=== PATIENT | female | born 1955 | race Caucasian/White ===

== ENCOUNTER → 2017-11-20 | Day surgery (SDC) | payer BC, MEDICARE ==
[~2017-11-20] MED LIST: ADDERALL 20 MG20 MG PO; ARMOUR THYROID60 MG PO; BALANCED SALT SOLN (OPTH) 15 ML BTL IO ONE; CLONAZEPAM1 MG PO; FENTANYL CITRATE/PF 100MCG/2 ML INJ ONE; GELATIN SPONGE 12-7MM ONE; GLYCOPYRROLATE1 MG PO; LIDOCAINE 2% /EPINEPHRINE 20 ML SDV INJ ONE; LIDOCAINE HCL 2% LOCAL INJ 5 ML SDV VIAL INJ ONE; LUNESTA3 MG PO; MIDAZOLAM HCL 2 MG/2 ML VIAL ONE; MONTELUKAST SOD10 MG PO; NEOMYCIN/POLYMYXIN/DEX (OPTH) 3.5 GM TUBE ONE; OMEPRAZOLE40 MG PO; PRISTIQ ER50 MG PO; PROPOFOL IV EMULSION 10 MG/ML 20 ML VIAL ONE; SOMA350 MG PO; TYLENOL325 MG PO; WELLBUTRIN XL150 MG PO
--- OUTSIDE RECORDS SUMMARY | 2017-11-20 15:42 | XMS REPORT | Clinical Summary ---
Author Author [facility] Address Unknown Phone Unavailable Care Team Providers Care Automatic Chief Name Role Phone Marcelino Ramirez MD PCP Allergies Active Allergy Reactions Severity Noted Date Comments Tramadol Other (See Comments) 09/24/2017 vomitting Current Medications Prescription Sig. Disp. Refills Start End Date Status Date carisoprodol (SOMA) 350 TAKE 1 TABLET BY MOUTH 60 tablet 2 06/05/20 08/05/20 MG tablet TWICE DAILY NEEDED 17 17 buPROPion XL (WELLBUTRIN Take 1 tablet (150 mg 30 tablet 0 09/27/20 10/27/19 XL) 150 MG 24 hr total) by mouth every 17 18 tabletIndications: Major morning for 30 days Depressive Disorder Indications: Major Depressive Disorder. desvenlafaxine succinate Take 2 tablets (50 mg 30 tablet 0 09/27/20 10/27/19 25 mg tablet extended total) by mouth every 17 18 release 24 hrIndications: other day for 30 days Major Depressive Disorder Indications: Major Depressive Disorder. hydrOXYzine (ATARAX) 50 Take 1 tablet (50 mg 45 tablet 1 09/27/20 MG tabletIndications: total) by mouth every 6 17 18 Anxiety (six) hours as needed (MILD ANXIETY) for up to 30 days Indications: Anxiety. Active Problems Problem Noted Date Severe episode of recurrent major depressive disorder, without psychotic features Encounters Date Type Specialty Care Team Description 09/24/2017 Hospital Psychiatry Shira Vallejo DO Severe single current - Encounter Ritu Rosas MD episode of major 09/27/2017 Sina Clay MD depressive disorder, without psychotic features (Primary Dx); Laceration of neck, initial encounter 06/03/2017 Refill Neurology Radhika Wong MD after 11/19/2016 Social History Tobacco Use Types Packs/Day Years Used Date Never Smoker Smokeless Tobacco: Never Used Alcohol Use Drinks/Week oz/Week Comments No Sex Assigned at Date Recorded Not on file Last Filed Vital Signs Vital Sign Reading Time Taken Blood Pressure 109/57 09/27/2017 6:13 AM [facility] Pulse 60 09/27/2017 6:13 AM [facility] Temperature 36.3 C (97.3 F) 09/27/2017 6:13 AM [facility] Respiratory Rate 18 09/27/2017 6:13 AM [employer] [facility] Oxygen Saturation 99% 09/27/2017 6:13 AM [facility] Inhaled Oxygen - - Concentration Weight 76.4 kg (168 lb 7 oz) 09/26/2017 8:01 AM [employer] [facility] Height 167.6 cm (5' 6") 09/25/2017 4:02 AM [employer] [facility] Body Mass Index 27.19 09/26/2017 8:01 AM [employer] [facility] Plan of Treatment Health Maintenance Due Date Last Done Comments PAP SMEAR 1977 COLONOSCOPY 2006 MAMMOGRAM 09/17/2015 09/17/2013, 09/25/2012, 07/06/2011, Additional history exists ZOSTER VACCINE 2016 INFLUENZA VACCINE 05/01/2017 Procedures Procedure Name Priority Date/Time Associated Diagnosis Comments NM RESUP NPTERF WND BODY Routine 10/02/2017 Results for this 2.6-7.5 CM 5:46 PM [employer] [facility] procedure are in the results section. after 11/19/2016 Results * LACERATION REPAIR (10/02/2017 5:46 PM) Narrative JENNIFER Hernández 09/24/2017 11:44 PM Laceration Repair Performed by: DUY VILLARREAL Authorized by: SHIRA VALLEJO Consent: Consent obtained:Verbal Consent given by:Patient Risks discussed:Infection, pain, poor cosmetic result, poor wound healing, retained foreign body, tendon damage and vascular damage Alternatives discussed:Delayed treatment Anesthesia (see MAR for exact dosages): Anesthesia method:Local infiltration Local anesthetic:Lidocaine 1% w/o epi Laceration details: Location:Neck Neck location:R anterior Length (cm):3 Repair type: Repair type:Simple Pre-procedure details: Preparation:Patient was prepped and draped in usual sterile fashion and imaging obtained to evaluate for foreign bodies Exploration: Wound exploration: wound explored through full range of motion and entire depth of wound probed and visualized Wound extent: no areolar tissue violation noted, no fascia violation noted, no foreign bodies/material noted, no muscle damage noted, no nerve damage noted, no tendon damage noted, no underlying fracture noted, no vascular damage noted and no amputation Contaminated: no Treatment: Area cleansed with:Betadine and saline Amount of cleaning:Standard Irrigation solution:Sterile saline Visualized foreign bodies/material removed: yes Skin repair: Repair method:Sutures Suture size:5-0 Suture material:Prolene Suture technique:Simple interrupted Number of sutures:7 Approximation: Approximation:Close Vermilion border: well-aligned Post-procedure details: Dressing:Antibiotic ointment Patient tolerance of procedure:Tolerated well, no immediate complications * ECG 12 lead (09/25/2017 8:24 AM) Component Value Ref Range Ventricular rate 64 Atrial rate 64 NM interval 166 QRSD interval 100 QT interval 450 QTC interval 464 P axis 1 45 QRS axis 1 10 T wave axis 45 EKG impression Normal sinus rhythm-Normal ECG-In automated comparison with ECG of 26-MAR-2014 07:42,-ST no longer depressed in Inferior leads- Specimen Performing Laboratory [facility] [address] [place] [id number] * Urinalysis screen and microscopy, with reflex to culture (09/24/2017 9:21 PM) Component Value Ref Range Specimen site Clean catch Color, UA Straw Appearance, UA Clear Specific gravity, UA 1.009 1.001 - 1.035 pH, UA 6.0 5.0 - 8.5 Protein, UA Negative Negative Glucose, UA Negative Negative Ketones, UA Negative Negative Bilirubin, UA Negative Negative Blood, UA Negative Negative Nitrite, UA Negative Negative Urobilinogen, UA <2.0 <2.0 Leukocyte esterase, UA Small (A) Negative Epithelial cells, UA 1 /HPF WBC, UA 11 (H) 0 - 4 /HPF RBC, UA 1 0 - 2 /HPF Bacteria, UA Few None seen Yeast, UA None seen Yeast with pseudohyphae, None seen UA Hyaline casts, UA 1 /LPF Specimen Performing Laboratory Urine [facility] DEPART[facility] OF PATHOLOGY AND GENOMIC MEDICINE [address] [place] [id number] * Urine drugs of abuse screen (09/24/2017 9:21 PM) Component Value Ref Range Amphetamine screen, urine Negative Barbiturate screen, urine Negative Benzodiazepine screen, Positive (A) urine Cannabinoid screen, urine Negative Cocaine screen, urine Negative Methadone metabolite Negative (EDDP), urine Opiates screen, urine Negative Oxycodone screen, urine Negative Phencyclidine screen, Negative urine Tricyclic screen, urine Negative Comment: Drug screen minimum concentration of detectability Amphetamines 1000 ng/mL Barbiturates 200 ng/mL Benzodiazepines 300 ng/mL Cocaine 300 ng/mL Methadone 3 00 ng/mL Opiates 300 ng/mL Oxycodone 3 00 ng/mL Phencyclidine 25 ng/mL Cannabinoids 50 ng/mL Tricyclics 1000 ng/mL Negative test results indicates presumptive evidence of lack of clinically significant drug concentration in this urine specimen. Positive test results are presumptive evidence of clinically significant drug concentration in this urine specimen. Testing performed for medical purposes only. Specimen Performing Laboratory Urine [facility]PART[facility] OF PATHOLOGY AND GENOMIC MEDICINE [address] [place] [address] * Gram stain (09/24/2017 9:21 PM) Component Value Ref Range Gram stain result Few WBC's Rare Gram positive cocci in pairs Comment: Specimen Information Specimen Source: Urine Specimen Site: Clean catch Specimen Performing Laboratory Urine [facility] OF PATHOLOGY [facility] GENOMIC MEDICINE [address] [place] [address] * Urine culture (09/24/2017 9:21 PM) Component Value Ref Range Urine culture isolate Streptococcus group B 10-3 cfu/ml (A) Comment: Specimen Information Specimen Source: Urine Specimen Site: Clean catch Specimen Performing Laboratory Urine [facility] OF [facility]OMIC [facility]INE [address] [place] [address] * Estimated GFR (09/24/2017 8:00 PM) Component Value Ref Range GFR Non Af Amer 64 mL/min/1.73 m2 GFR Af Amer 77 mL/min/1.73 m2 Comment: Chronic kidney disease: <60 mL/min/1.73m2 Kidney failure: <15 mL/min/1.73m2 The estimated GFR is calculated from the IDMS-traceable Modification of Diet in Renal Disease Equation. The accuracy of the calculation is poor when the creatinine is normal. Calculated values >90 mL/min/1.73m2 are not reported. This equation has not been validated in children (<18 years), women, the elderly (>70 years), or ethnic groups other than Caucasians and Americans. Specimen Performing Laboratory Plasma specimen [facility] OF PATHOLOGY [facility] GENOMIC MEDICINE [address] [place], [place] [id number] * CBC with platelet and differential (09/24/2017 8:00 PM) Component Value Ref Range WBC 5.14 4.50 - 11.00 k/uL RBC 4.62 4.20 - 5.50 m/uL HGB 14.4 12.0 - 16.0 g/dL HCT 43.8 37.0 - 47.0 % MCV 94.8 82.0 - 100.0 fL MCH 31.2 27.0 - 34.0 pg MCHC 32.9 31.0 - 37.0 g/dL RDW - SD 41.4 37.0 - 55.0 fL MPV 10.7 8.8 - 13.2 fL Platelet count 148 (L) 150 - 400 k/uL Nucleated RBC 0.00 /100 WBC Neutrophils 55.4 39.0 - 69.0 % Lymphocytes 37.0 25.0 - 45.0 % Monocytes 6.4 0.0 - 10.0 % Eosinophils 0.6 0.0 - 5.0 % Basophils 0.4 0.0 - 1.0 % Immature granulocytes 0.2Comment: "Immature granulocytes" 0.0 - 1.0 % (promyelocytes, myelocytes, metamyelocytes) Specimen Performing Laboratory Blood [facility] OF PATHOLOGY AND GENOMIC MEDICINE [address] [place] [id number] * Thyroid stimulating hormone (09/24/2017 8:00 PM) Component Value Ref Range TSH 2.85 0.27 - 4.20 uIU/mL Specimen Performing Laboratory Plasma specimen [facility] OF PATHOLOGY AND GENOMIC MEDICINE [address] [place] [id number] * T4, free (09/24/2017 8:00 PM) Component Value Ref Range T4, free 0.9 0.9 - 1.7 ng/dL Specimen Performing Laboratory Plasma specimen [facility] OF PATHOLOGY AND GENOMIC MEDICINE [address] [place] [phone] * Hemoglobin A1c (09/24/2017 8:00 PM) Component Value Ref Range Hemoglobin A1C 5.0 4.0 - 5.6 % Comment: HbA1c cutoffs for diagnosing diabetes: 4.0% - 5.6%=normal 5.7% - 6.4%=increased risk for diabetes (prediabetes) >=6.5%=diabetes Goals for glycemic control (ADA 2016) < 7.0% Target for non adults with diabetes. More or less stringent targets may be appropriate for individual patients. <7.5% Target for Children and adolescents with type 1 diabetes. Specimen Performing Laboratory [facility] OF PATHOLOGY AND GENOMIC MEDICINE [address] [place] [id number] * Alcohol level, blood (09/24/2017 8:00 PM) Component Value Ref Range Alcohol None Detected mg/dL Comment: Normal None Detected Legal Intoxication in [place] 80 mg/dL (0.08%) - Whole Blood Toxic Concentration 200 mg/dL (0.2%) Potentially Fatal 350 - 500 mg/dL (0.35 - 0.5%) Alcohol percent None Detected % Specimen Performing Laboratory Plasma specimen [facility] OF PATHOLOGY AND GENOMIC MEDICINE [address] [place] [phone] * Acetaminophen level (09/24/2017 8:00 PM) Component Value Ref Range Acetaminophen level <15.0 10.0 - 30.0 ug/mL Comment: Therapeutic 10-30 ug/mL Possible Toxicity 150-200 ug/mL Probable Toxicity >200 ug/mL Specimen Performing Laboratory Plasma specimen [facility] OF PATHOLOGY AND GENOMIC MEDICINE [address] [place] [id number] * Salicylate level (09/24/2017 8:00 PM) Component Value Ref Range Salicylate <3.0 3.0 - 30.0 mg/dL Specimen Performing Laboratory Plasma specimen [facility] OF PATHOLOGY [facility] GENOMIC MEDICINE [address] [place] [id number] * Lipid panel (09/24/2017 8:00 PM) Component Value Ref Range Cholesterol 231 (H) <200 mg/dL Triglycerides 220 (H) <150 mg/dL HDL cholesterol 36 (L) >40 mg/dL LDL cholesterol 161 (H)Comment: Result obtained by direct LDL <100 mg/dL measurement Lipid panel SeeBelow interpretation Comment: Total Cholesterol (mg/dL) <200 Desirable 200-239 Borderline-high >=240 High Triglycerides (mg/dL) <150 Normal 150-199 Borderline-high 200-499 High >=500 Very high HDL Cholesterol (mg/dL) <40 Low (male) <40 Low (female) LDL Cholesterol (mg/dL) <100 Optimal 100-129 Near or above optimal 130-159 Borderline-high 160-189 High >=190 Very high Risk Catergories that modify LDL goals. Risk Catergories LDL goal (mg/dL) CHD and CHD risk equivalent <100 (10-year risk >20%) Multiple (2+) risk factors <130 (10-year risk=<20%) 0-1 risk factors <160 (<10-year risk) Defining levels of lipids in metabolic syndrome Triglycerides >=150 mg/dL HDL Cholesterol Men <40 mg/dL Women <40 mg/dL Non-HDL cholesterol is a second target for therapy in persons with high triglycerides (>=200 mg/dL) Specimen Performing Laboratory Plasma specimen [facility] OF PATHOLOGY [facility] GENOMIC MEDICINE [address] [place] [address] * Comprehensive metabolic panel (09/24/2017 8:00 PM) Component Value Ref Range Sodium 143 135 - 148 mEq/L Potassium 4.4 3.5 - 5.0 mEq/L Chloride 107 98 - 112 mEq/L CO2 24 24 - 31 mEq/L Anion gap 12 7 - 15 mEq/L Comment: Starting from December , anion gap calculation no longer incorporates potassium. Please note the change. BUN 9 8 - 23 mg/dL Creatinine 0.9 0.5 - 0.9 mg/dL Glucose 78 65 - 99 mg/dL Calcium 9.1 8.8 - 10.2 mg/dL Protein 6.5 6.3 - 8.3 g/dL Comment: 4.6-7.0 g/dL 1 week 4.4-7.6 g/dL 7 months-1year 5.1-7.3 g/dL 1-2 years 5.6-7.5 g/dL >3 years 6.0-8.0 g/dL 18-150 6.3-8.3 g/dL Albumin 3.5 3.5 - 5.0 g/dL A/G ratio 1.2 0.7 - 3.8 Alkaline phosphatase 54 35 - 104 U/L AST 22 10 - 35 U/L ALT 16 5 - 50 U/L Total bilirubin 0.3 0.0 - 1.2 mg/dL Specimen Performing Laboratory Plasma specimen [facility] OF PATHOLOGY AND GENOMIC MEDICINE [address] [place] [address] after 11/19/2016 Insurance Payer Benefit Subscriber ID Type Phone Address Plan / Group BCBS BCBS xxxxxxxxxxxx PPO CHOICE PPO/LESTER JO[employer] PPO MEDICARE MEDICARE xxxxxxxxxx Medicare [place], [place] PART A AND B
== END | disposition home or self-care (01) ==
LOC: OR 15:40
PROVIDERS: ATTEND Ophthalmology
DX: H02.834 Dermatochalasis of left upper eyelid (principal); H02.831 Dermatochalasis of right upper eyelid; E03.9 Hypothyroidism, unspecified; K21.9 Gastro-esophageal reflux disease without esophagitis; N20.0 Calculus of kidney; F41.9 Anxiety disorder, unspecified; F32.9 Major depressive disorder, single episode, unspecified
CPT/HCPCS: 15823; J2001 ×2; J2250

== ENCOUNTER → 2018-07-02 | Outpatient (CLI) | payer BC, MEDICARE ==
[~2018-07-02] MED LIST changes: -BALANCED SALT SOLN (OPTH) 15 ML BTL IO ONE; -FENTANYL CITRATE/PF 100MCG/2 ML INJ ONE; -GELATIN SPONGE 12-7MM ONE; -LIDOCAINE 2% /EPINEPHRINE 20 ML SDV INJ ONE; -LIDOCAINE HCL 2% LOCAL INJ 5 ML SDV VIAL INJ ONE; +LORAZEPAM INJ 2 MG/ML VIAL ONE; -MIDAZOLAM HCL 2 MG/2 ML VIAL ONE; -NEOMYCIN/POLYMYXIN/DEX (OPTH) 3.5 GM TUBE ONE; -PROPOFOL IV EMULSION 10 MG/ML 20 ML VIAL ONE
--- NOTE | 2018-07-03 07:46 | Diagnostic Imaging Report ---
EXAMINATION: MRI of the thoracic spine without contrast HISTORY: Back and shoulder pain COMPARISON: None. TECHNIQUE: Sagittal T1 without contrast, T2, and STIR; axial T2. Coronal T2. Intravenous contrast: none FINDINGS: Curvature: Normal kyphosis. Right upper dextroscoliosis. Vertebrae: No evidence of recent fracture, infection, or neoplasm. Modic type I endplate degenerative changes with subchondral bone marrow edema on the left side at T6-T7 and T7-T8. Discs: Symmetric disc bulges from T5 to T10. Small left paracentral disc protrusion at T5-T6, T6-T7, T8-T9 and on the right and T9-T10 as well as left paracentral at T11-T12 and right paracentral at T12-L1 without significant canal stenosis. Spinal canal: No mass or abnormal blood vessels. Spinal cord: Normal size and signal intensity. Foramina: Unremarkable. Paraspinal soft tissues: Heterogeneous signal intensity partially visualized posterior nodule in the right lobe of the thyroid gland. Partially visualized T2 hyperintense possible cyst/meningioma in the right liver. Proximal ribs: No abnormal signal intensity. IMPRESSION: 1. Mild upper thoracic dextroscoliosis. 2. Modic type I endplate degenerative changes at T6-T7 and T7-T8. 3. Mild degenerative changes of the discs from T5 to T12 without significant canal or foraminal stenosis. Signed by: Dr. Fatimah Longo M.D. on 07/03/2018 7:43 AM
--- NOTE | 2018-07-03 10:49 | Diagnostic Imaging Report ---
EXAMINATION: MRI of the lumbar spine without contrast HISTORY: Back pain radiating to the right lower extremity, radiculopathy with numbness COMPARISON: None. TECHNIQUE: Sagittal T1, T2, STIR; axial T2 and proton density. FINDINGS: It is assumed that there are 5 lumbar vertebrae. Curvature/Alignment: Normal lordosis. Vertebrae: No evidence of recent fracture, infection, or neoplasm. Minimal minimal chronic compression deformity of the superior endplate of L1 and L2 on the left side. Conus: Normal, terminating at L1-L2 Cauda equina: Unremarkable. Lower thoracic: Unremarkable. Paraspinal soft tissues: See below Postoperative changes: Posterior instrumented spinal fusion with rods fixated via bilateral pedicle screws from L4 to S1. Bilateral L4-L5 laminectomies and diskectomy at L4-L5. Associated paraspinal musculature atrophy. Degenerative changes: Mild loss of disk height and T2 to signal posteriorly from L1-L2 to L3-L4 and at L5-S1 T12-L1: Unchanged small right subarticular disk extrusion (3 mm AP dimension with 2-mm superior and inferior migration) without canal stenosis or nerve root impingement. Patent foramina. L1-L2: Unchanged left subarticular disk protrusion (4-mm AP dimension) without canal stenosis or nerve root impingement. Mild right greater than left facet arthropathy. L2-L3: Symmetric disk bulge, thick ligamentum flavum, and facet arthropathy without significant canal stenosis. Mild right greater than left foraminal stenosis due to disk bulge and facet arthropathy. L3-L4: Mild canal stenosis due to disk bulge, thick ligament flavum and facet arthropathy. Mild right greater than left foraminal stenosis due to disk bulge and facet arthropathy. L4-L5: Solid interbody and posterior fusion. No significant stenosis. L5-S1: Mild loss of disk height and T2 to signal posteriorly. Patent canal and foramina. IMPRESSION: 1. Mild multilevel degenerative changes from L1-L2 to L3-L4 without significant canal or foraminal stenosis. 2. Solid interbody and posterior fusion at L4-L5 and L5-S1 without spinal canal or foraminal stenosis. Signed by: Dr. Fatimah Longo M.D. on 07/03/2018 10:45 AM
== END ==
LOC: MRI 12:28
PROVIDERS: ATTEND Family Medicine
DX: M54.6 Pain in thoracic spine (principal); M54.16 Radiculopathy, lumbar region
CPT/HCPCS: 72146; 72148; J2060